=== PATIENT | male | born 2000 | race Caucasian/White ===

== ENCOUNTER 2023-10-13 14:20 | Emergency (ER) | payer SELFPAY ==
[~2023-10-13] VITALS: Ht 185.4 cm; Wt 79.3 kg
[2023-10-13] VITALS (9 sets, daily range): BP systolic 118–161; BP diastolic 54–81
[2023-10-13] MEDS ORDERED: CEPHALEXIN500 M1 PO (15:57)
== END 2023-10-13 16:16 | disposition home or self-care (01) | DRG 605 ==
LOC: ED 14:20
DX: S81.831A Puncture wound without foreign body, right lower leg, initial encounter (principal); W01.0XXA Fall on same level from slipping, tripping and stumbling without subsequent striking against object, initial encounter; Y92.008 Other place in unspecified non-institutional (private) residence as the place of occurrence of the external cause